=== PATIENT | female | born 1970 | race Caucasian/White ===

== ENCOUNTER → 2022-07-08 09:59 | Outpatient (BNVA) | payer OTHER, SELFPAY | PROVIDERS: PCP Internal Medicine; Visit Provider Nurse Practitioner Family ==

== ENCOUNTER → 2022-07-28 09:50 | Outpatient (REF) | payer OTHER, SELFPAY | LOC: HO.SL 09:50 | PROVIDERS: Visit Provider Nurse Practitioner Family | DX: R40.0 Somnolence (principal); R06.83 Snoring | CPT/HCPCS: 95806 ==